=== PATIENT | male | born 1965 | race Caucasian/White ===

== ENCOUNTER 2017-02-26 09:34 | Emergency (ER) | payer OTHER ==
[~2017-02-26] VITALS: Ht 182.9 cm; Wt 130.0 kg
[~2017-02-26 09:34] MED LIST: HYZAAR1 TA1 PO
[2017-02-26] MEDS ORDERED: AMLODIPINE5 MG PO (10:02)
[2017-02-26] MEDS ORDERED: LOSARTAN/HCT1 TA2 PO (10:04)
[2017-02-26] MEDS ORDERED: DOXYCYC MONO100 M1 PO (11:20)
[2017-02-26 11:27] VITALS: BP 148/72
== END 2017-02-26 11:30 | disposition home or self-care (01) | DRG 603 ==
LOC: ED 09:34
DX: L03.116 Cellulitis of left lower limb (principal); I10 Essential (primary) hypertension

== ENCOUNTER 2018-08-17 12:52 | Emergency (ER) | payer OTHER ==
[~2018-08-17] VITALS: Ht 182.9 cm; Wt 144.0 kg
[~2018-08-17 12:52] MED LIST changes: +AMLODIPINE5 MG PO; +DOXYCYC MONO100 M1 PO; +LOSARTAN/HCT1 TA2 PO
[2018-08-17 15:49] LABS: HEMATOCRIT 48.8 % (39.0-50.0); IMMATURE GRANULOCYTES 0.3 % (0.0-5.0); MEAN CELL VOLUME 80.4 fL CALC (80.0-100.0); MEAN CORPUSCULAR HGB 26.4 pG CALC (26.0-32.0); MEAN CORPUSCULAR HGB CONC 32.8 g/L CALC (32.0-36.0); NEUT# 3.9 thou/uL (1.82-7.42); RED BLOOD COUNT 6.07 mill/uL (4.70-6.10); RED CELL DISTRI WIDTH 13.6 % (11.5-15.5)
[2018-08-17 16:03] LABS: ALBUMIN 4.5 g/dL (3.2-5.0); ALKALINE PHOSPHATASE 86 u/l (38-126); ANION GAP 15 (6-22 (CALC)); BILIRUBIN, TOTAL 0.5 mg/dL (0.0-1.4); BUN 16 mg/dL (9-20); BUN/CREATININE RATIO 15 (12-20 (CALC)); CARBON DIOXIDE 22 mmol/l (22-30); CHLORIDE 108 mmol/l (95-108); GFR > 60 ML/MIN (>=60 (CALC)); GFR FOR AFR.AMER. > 60 ML/MIN (>=60 (CALC)); POTASSIUM 4.6 mmol/l (3.5-5.1); SGOT/AST 41 u/l (17-59); SODIUM 140 mmol/l (137-146); TOTAL PROTEIN 7.6 g/dL (6.3-8.2)
[2018-08-17] MEDS ORDERED: LISINOP/HCTZ1 TA1 PO (16:17)
[2018-08-17 16:23] VITALS: BP 127/59
== END 2018-08-17 16:20 | disposition home or self-care (01) | DRG 305 ==
LOC: ED 12:52
PROVIDERS: Emergency Medicine
DX: I10 Essential (primary) hypertension (principal); R60.0 Localized edema